=== PATIENT | male | born 1965 | race Caucasian/White ===

== ENCOUNTER 2017-02-10 06:40 | Inpatient (IN) | payer BC ==
[~2017-02-10] VITALS: Ht 175.3 cm; Wt 115.5 kg
--- NOTE | ~2017-02-10 | HP ---
ADMIT: 02/10/2017 RM/LOC: [facility] MR#: [id number] [place] [address] [address] YADI SUTHERLAND [address] [place] [id number] Pre-OP History and Physical SEX: M AGE: 51 : 1965 DATE OF SERVICE: CHIEF COMPLAINT: Right knee pain. HISTORY OF PRESENT ILLNESS: The patient is a 51-year-old male long-standing history of right knee pain. Right knee pain limits his activity. He has had a prior knee arthroscopy, chronic ACL tear, fairly advanced arthritis. He has been wearing a knee leadership development manager brace for instability and pain. Tried physical therapy. Failed conservative care. Now being admitted for right total knee arthroplasty. PAST MEDICAL HISTORY: Include hypertension and coronary artery disease. MEDICATIONS: Include: 1. Potassium. 2. Allopurinol. 3. Aspirin. 4. Lisinopril. 5. Atorvastatin. 6. Lasix. ALLERGIES: NONE. SOCIAL HISTORY: Denies any tobacco or alcohol use. REVIEW OF SYSTEMS: Negative. PHYSICAL EXAMINATION: GENERAL: Healthy appearing 51-year-old male. MUSCULOSKELETAL: Varus deformity to the right knee. Fair amount of crepitus. Range of motion 5 degrees of hyperextension to 130 degrees of flexion. No instability in the varus or valgus plane. No pain in the hip. Leg is neurovascularly intact. ADMIT: 02/10/2017 RM/LOC: [facility] MR#: [id number] [place] [address] [address] YADI SUTHERLAND [address] [address] Pre-OP History and Physical SEX: M AGE: 51 : 1965 DIAGNOSTIC DATA: X-rays AP, lateral, PA flexion view shows advanced right knee arthritis complete collapse. IMPRESSION: 1. Advanced right knee degenerative disease. 2. Generalized ligamentous laxity. PLAN: We talked about different options. He has failed conservative care. Plan on doing a right Attune total knee arthroplasty. He is aware the risks and benefits and options and agreed to proceed. He has been seen and cleared from a medical standpoint. Kofi Schrader MD/ [facility] JOB #: [id number] CC: Kofi Schrader, Attending Physician Diogenes Rico, Family Physician
--- NOTE | ~2017-02-10 | OR ---
ADMIT: 02/10/2017 RM/LOC: [address] [facility] MR#: [id number] [address] YADI SUTHERLAND [address] [place] [id number] Operative/Delivery Room Report SEX: M AGE: 51 : 1965 SURGERY DATE: 02/10/2017 SURGEON: Kofi Schrader MD CHEMICAL EQUIPMENT REPAIRER: Mary Hurst PA-C PREOPERATIVE DIAGNOSES: 1. Right knee degenerative joint disease. 2. Generalized ligamentous laxity. POSTOPERATIVE DIAGNOSES: 1. Right knee degenerative joint disease. 2. Generalized ligamentous laxity. OPERATIONS: 1. Right total knee arthroplasty. 2. Intra-articular block. COMPLICATIONS: None. ESTIMATED BLOOD LOSS: 100 mL. TOTAL TOURNIQUET TIME: 40 minutes. COMPONENTS: 1. Size 6 Attune femoral component. 2. Size 6 Attune tibial component. 3. A 10-mm posterior stabilized insert. 4. A 38 mm oval patellar button. 5. Trinidad SpeedSet cement. DESCRIPTION OF OPERATION: The patient was taken to the operating room and the correct extremity was identified. The patient received a spinal anesthetic. The right lower extremity was prepped and draped in a standard fashion. The leg was exsanguinated and tourniquet inflated. An anterior incision was made and dissection was carried through the subcutaneous tissue. A medial parapatellar arthrotomy was performed. An appropriate medial release was performed. The patella was subluxed laterally. The infrapatellar fat pad was partially excised for exposure. At that point, the distal femur was opened up with a drill. We cut 9 mm off the distal femur in 5 degrees of valgus using an intramedullary guide. We then cut the tibia perpendicular to its long axis taking it flush with the affected side with an extramedullary guide. We then sized the femur to a size 6 and pinned this in appropriate external rotation aligning it with the epicondylar axis. We then made anterior, posterior, and chamfer cuts with the 4-in-1 cutting block. We opened up the joint space and removed the remaining posterior osteophytes, meniscus, and PCL ligament. We made our box cut centralizing the femoral component. The tibia was subluxed anteriorly, fit for a size 6 modular tibial tray, punched and drilled in appropriate external rotation. We then removed the remaining tibial ADMIT: 02/10/2017 RM/LOC: 510 [facility] MR#: [id number] [address] YADI SUTHERLAND [address] [place] [id number] Operative/Delivery Room Report SEX: M AGE: 51 : 1965 osteophytes. We then cut the patella perpendicular to its long axis taking it flush with the lateral facet and fit it for a 38 mm oval patellar button restoring patellar height. We then extended the knee and opened the joint space to obtain posterior hemostasis and perform a posterior intra-articular block. We then put in trial components with a 10 mm insert. At that point, we had full extension, full flexion, patella tracked centrally and no lateral release was required. The knee was also stable to varus and valgus stress testing. All trial components were removed and all the bony surfaces were Waterpik'd clean. We then cemented the tibia, femur, and patella in a standard fashion, put in the trial 10-mm posterior stabilized insert and held the knee in extension. While the cement hardened, we completed our intra- articular block. Once the cement was hard, we deflated the tourniquet, obtained hemostasis, irrigated out the wound thoroughly, removed the trial insert and put in the real insert. The knee was again found to be stable with full range of motion. No Hemovac drain was used. At that point, the extensor mechanism was closed with an interrupted 0-Vicryl suture with the knee in flexion. The subcutaneous tissue was closed 2-0 Vicryl and thomas were placed in the skin. Mepilex Border dressing was then applied. The patient was taken to the recovery room in stable condition with no complications. Kofi Schrader MD/ [facility] JOB #: [id number] CC: Kofi Schrader, Attending Physician Diogenes Rico, Family Physician
--- NOTE | ~2017-02-10 | CO ---
ADMIT: 02/10/2017 RM/LOC: [facility] MR#: [id number] [place] [address] [address] YADI SUTHERLAND [address] [place] [id number] Consultation Report SEX: M AGE: 51 : 1965 DATE OF CONSULTATION: 01/27/2017 ATTENDING PHYSICIAN: Kofi Schrader CONSULTING PHYSICIAN: Diogenes Rico DO DATE OF PLANNED SURGERY: 02/10/2017 HISTORY OF PRESENT ILLNESS: This is a 51-year-old male patient with chronic instability and degeneration of the right knee. He is planning to undergo right knee replacement by Dr. Schrader. He has a significant prior history of a CVA, hypertension, hyperlipidemia, hypothyroidism, obesity, coronary artery disease, status post coronary artery bypass graft of five vessels in January 2011. He also had hydrocephalus following his CVA, and has undergone prior ventriculostomy, prior hernia surgery, and tonsillectomy. SOCIAL HISTORY: He works. He is independent. Does not smoke or use significant alcohol. FAMILY HISTORY: Significant for father with hypertension, diabetes, myocardial infarction. Mother with cancer, myocardial infarction, Alzheimer's disease. Sister with cancer. REVIEW OF SYSTEMS: He currently denies any chest pain, shortness of breath, cough, sputum production, fevers, chills, nausea, vomiting, diarrhea, constipation, hematemesis, hematochezia, or melena. He is on a baby aspirin and has not had any bleeding or clotting issues. PHYSICAL EXAMINATION: GENERAL: He is pleasant, alert. VITAL SIGNS: Blood pressure is 112/68. He is obese at 256 pounds. 5 feet 9 inches tall. He has a body mass index of 37.8. EAR, NOSE, AND THROAT: Unremarkable. No JVD or bruits. HEART: Regular. LUNGS: Clear. ABDOMEN: Soft, nontender. ADMIT: 02/10/2017 RM/LOC: [facility] MR#: [id number] [place] [address] [address] YADI SUTHERLAND [address] [place] [id number] Consultation Report SEX: M AGE: 51 : 1965 EXTREMITIES: No significant peripheral edema. He does walk with a cane. LABORATORY DATA: His labs showed a blood sugar 123. His CBC is essentially within normal range. His EKG shows a sinus rhythm. IMPRESSION: Stable, chronic cardiac and cerebrovascular concerns with underlying degenerative joint disease and impaired mobility from this. I think his general health will improve once his mobility is returned. At this time, I do believe he is an appropriate surgical candidate. We will plan to use aspirin as DVT prophylaxis at full-strength 325 mg. He is currently taking a baby aspirin which he plans to hold one week in advance to surgery. Diogenes Rico DO/ [facility] JOB #: [id number] CC: Kofi Schrader, Attending Physician Diogenes Rico, Family Physician
[2017-02-13] MEDS ORDERED: ZESTRIL DPS20 MG PO (19:40)
[2017-02-13] MEDS ORDERED: PROTONIX40 MG PO (19:40)
[2017-02-13] MEDS ORDERED: LIPITOR DPS10 MG PO (19:41)
[2017-02-13] MEDS ORDERED: SYNTHROID25 MCG PO (19:41)
[2017-02-13] MEDS ORDERED: ZYLOPRIM100 MG PO (19:41)
[2017-02-13] MEDS ORDERED: LASIX DPS40 MG PO (19:41)
[2017-02-13] MEDS ORDERED: ASA325 MG PO (19:42)
[2017-02-13] MEDS ORDERED: MIRALAX PACKET17 GM PO (19:42)
[2017-02-13] MEDS ORDERED: KLOR-CON M2020 ME1 PO (19:42)
[2017-02-13] MEDS ORDERED: THERAPEUTIC MUL1 TAB PO (19:42)
[2017-02-13] MEDS ORDERED: TYLENOL DPS325 MG PO (19:43)
[2017-02-13] MEDS ORDERED: SENOKOT-S TABL1 EACH PO (19:43)
[2017-02-13] MEDS ORDERED: ULTRAM DPS50 MG PO (19:43)
[2017-02-13] MEDS ORDERED: BENADRYL-DPS25 MG PO (19:43)
[2017-02-13] MEDS ORDERED: CEPACOL SORE T1 EACH PO (19:44)
[2017-02-13] MEDS ORDERED: COLACE-DPS100 MG PO (19:44)
[2017-02-13] MEDS ORDERED: DULCOLAX-DPS5 MG PO (19:44)
[2017-02-13] MEDS ORDERED: COMPAZINE DPS5 MG PO (19:44)
[2017-02-13] MEDS ORDERED: FLEXERIL-DPS10 MG PO (19:45)
[2017-02-13] MEDS ORDERED: OXY IR DPS5 MG PO (19:45)
[2017-02-13] MEDS ORDERED: MILK OF MAGNESI10 ML PO (19:45)
[2017-02-13] MEDS ORDERED: MAALOX DPS30 ML PO (19:45)
[2017-02-13] MEDS ORDERED: TUMS200 MG PO (19:46)
== END 2017-02-12 15:20 | disposition home health service (06) | DRG 470 ==
LOC: WOR 06:40 → 5MS 06:40
PROVIDERS: ADMIT Orthopaedic Surgery
PROC: 0SRC0J9 Replacement of Right Knee Joint with Synthetic Substitute, Cemented, Open Approach (ICD-10-PCS; principal; 2017-02-10)
DX: M17.11 Unilateral primary osteoarthritis, right knee (principal); I10 Essential (primary) hypertension; I25.10 Atherosclerotic heart disease of native coronary artery without angina pectoris; E78.5 Hyperlipidemia, unspecified; E03.9 Hypothyroidism, unspecified; E66.9 Obesity, unspecified; Z95.1 Presence of aortocoronary bypass graft; Z82.49 Family history of ischemic heart disease and other diseases of the circulatory system; Z86.73 Personal history of transient ischemic attack (TIA), and cerebral infarction without residual deficits; Z79.82 Long term (current) use of aspirin